=== PATIENT | male | born 1935 | race Caucasian/White ===

== ENCOUNTER 2017-06-03 09:09 | Day surgery (SDC) | payer MEDICARE ==
[~2017-06-03 09:09] MED LIST: DILTIAZEM CD 2240 MG PO
[2017-06-03 13:14] VITALS: BP 155/92
== END 2017-06-03 12:10 | disposition home or self-care (01) ==
LOC: SDC 09:09
PROVIDERS: Ophthalmology
PROC: 08RJ3JZ Replacement of Right Lens with Synthetic Substitute, Percutaneous Approach (ICD-10-PCS; principal; 2017-06-03 12:00)
DX: H26.9 Unspecified cataract (principal)
CPT/HCPCS: V2632

== ENCOUNTER 2017-06-17 08:05 | Day surgery (SDC) | payer MEDICARE ==
[2017-06-17 10:46] VITALS: BP 145/86
== END 2017-06-17 10:30 | disposition home or self-care (01) ==
LOC: SDC 08:05
PROVIDERS: Ophthalmology
PROC: 08RK3JZ Replacement of Left Lens with Synthetic Substitute, Percutaneous Approach (ICD-10-PCS; principal; 2017-06-17 10:00)
DX: H25.9 Unspecified age-related cataract (principal); H53.8 Other visual disturbances; I10 Essential (primary) hypertension
CPT/HCPCS: V2632